=== PATIENT | female | born 1955 | race Caucasian/White ===

== ENCOUNTER 2017-09-20 06:04 | Day surgery (SDC) | payer BC ==
[2017-09-17 16:13] VITALS: BMI 35.6
[2017-09-20] MEDS ORDERED: Bupivacaine/Epinephrine 0.25% 30 ML VIAL ONE (09:19)
[2017-09-20] MEDS ORDERED: Fentanyl 100 MCG/2 ML VIAL ONE ×2 (09:20→09:21)
[2017-09-20] MEDS ORDERED: CEFAZOLIN/Water 2 GM/20 ML SYRINGE ONE (09:24)
[2017-09-20] MEDS ORDERED: Lidocaine 2% MPF 10 ML AMP (For Epidural Use) ONE (09:42)
[2017-09-20] MEDS ORDERED: Dexamethasone 20 MG/5 ML VIAL ONE (09:42)
[2017-09-20] MEDS ORDERED: ePHEDrine/0.9% NaCl/PF SYRINGE 50 mg/10 ml ONE (09:42)
[2017-09-20] MEDS ORDERED: Ondansetron HCl/PF 4 MG/2 ML Vial ONE (09:42)
[2017-09-20] MEDS ORDERED: Propofol 200 MG/20 ML VIAL ONE (09:42)
[2017-09-20] MEDS ORDERED: Ketorolac Tromethamine 30 MG/ML VIAL ONE (09:42)
[2017-09-20] MEDS ORDERED: Glycopyrrolate 0.2 MG/ML 5 ML SYRINGE ONE (09:42)
--- NOTE | 2017-09-23 10:39 | OP ---
DATE OF PROCEDURE: 09/20/2017 PROCEDURE: Umbilical hernia repair with mesh. PREOPERATIVE DIAGNOSIS: Umbilical hernia. POSTOPERATIVE DIAGNOSIS: Umbilical hernia. HISTORY: Ms. Santiago is a 62-year-old woman with an umbilical hernia present for some time, but be coming more symptomatic recently. She has had to limit her activities because of pain at this hernia site and the recommendation was made to proceed with hernia repair. PROCEDURE: After informed consent was obtained and appropriate preoperative antibiotics administered , the patient was taken to the operating room where she was placed in supine position and anesthesia administered. She was prepped and draped in a standard sterile fashion and local anesthesia infused to the skin and subcutaneous tissues overlying the umbilicus. A transverse skin incision was made an d dissection carried down to the hernia sac which was dissected free circumferentially to the level o f the fascia. This was reduced through the fascial defect and a preperitoneal space developed bluntl y. A 4.[address] mesh was obtained and placed through the fascial defect into the preperiton eal space. The fascia was then closed with Ethibond sutures including the strap in the closure. The strap was then trimmed to length and the abdominal incision irrigated and hemostasis verified. The subcutaneous tissues were reapproximated with 3-0 absorbable sutures and the skin closed with 4-0 Mon ocryl subcuticular suture. Dermabond dressings were placed and once this was dry, a pressure dressin g placed at the umbilicus. The patient was taken to the recovery room in good condition. Estimated blood loss was minimal. There were no complications. There were no specimens.
== END 2017-09-20 12:20 | disposition home or self-care (01) ==
LOC: SDC 06:04
PROVIDERS: ATTEND Surgery
PROC: 0WUF0JZ Supplement Abdominal Wall with Synthetic Substitute, Open Approach (ICD-10-PCS; principal; 2017-09-20)
DX: K42.9 Umbilical hernia without obstruction or gangrene (principal); J45.909 Unspecified asthma, uncomplicated; E78.00 Pure hypercholesterolemia, unspecified; Z91.041 Radiographic dye allergy status; Z88.2 Allergy status to sulfonamides; Z79.899 Other long term (current) drug therapy; Z90.710 Acquired absence of both cervix and uterus; Z90.5 Acquired absence of kidney; Z98.890 Other specified postprocedural states
CPT/HCPCS: J1100; J1885; J2001; J2405; J2704; J3010

== ENCOUNTER 2017-10-16 01:32 | Outpatient (CLI) | payer BC | END 2017-10-16 01:33 | disposition home or self-care (01) | LOC: BICULT 01:32 | PROVIDERS: ATTEND Internal Medicine Nephrology | DX: Z53.9 Procedure and treatment not carried out, unspecified reason (principal) ==

== ENCOUNTER 2019-04-27 13:12 | Emergency (ER) | payer BC ==
[2019-04-27 13:40] LABS: #Basophils 0.1 thou/uL (0.0-0.2); #Lymphocytes 1.5 thou/uL (1.20-3.40); #Monocytes 0.4 thou/uL (0.11-0.59); #Neutrophils 4.3 thou/uL (1.40-6.50); %Basophils 1.2 % (0.0-1.0); %Eosinophils 0.6 % (0.0-10.0); %Lymphocytes 23.5 % (21.0-51.0); %Neutrophils 68.7 % (42.0-75.0); Hemoglobin 15.4 g/dL (12.0-16.0); Mean Corpuscular HGB CONC 33.5 g/dL (32.0-36.0); Mean Corpuscular Hemoglobin 30.3 pg (27.0-31.0); Mean Corpuscular Volume 90.6 fL (78.0-98.0); Mean Platelet Volume 6.9 fL (7.4-10.4); Platelet Count 233 thou/uL (130-400); RBC Distribution Width 11.5 % (11.5-14.5); Red Blood Cell (RBC) Count 5.08 mill/uL (4.20-5.40); White Blood Cell (WBC) Count 6.2 thou/uL (4.8-10.8)
[2019-04-27 13:57] LABS: ALT (SGPT) 15 U/L (8-55); AST (SGOT) 15 U/L (5-34); Albumin 4.4 g/dL (3.4-4.8); Alkaline Phosphatase 78 U/L (40-150); Anion Gap 16 mmol/L (10-20); BUN (Urea Nitrogen) 12 mg/dL (9.8-20.1); Bilirubin, Total 0.8 mg/dL (0.2-1.2); Calc. Creatinine Clearance 0 mL/min (70-130); Carbon Dioxide 22 mmol/L (23-31); Chloride 106 mmol/L (98-107); Estimated GFR-MDRD 55; Globulin 3.4 g/dL (2.4-3.5); Glucose 114 mg/dL (80-115); Lipase 46 U/L (8-78); Potassium 4.2 mmol/L (3.5-5.1); Protein, Total 7.8 g/dL (6.0-8.3); Sodium 140 mmol/L (136-145)
[2019-04-27] MEDS ORDERED: Morphine 4 MG/ML VIAL ONE (14:14)
[2019-04-27] MEDS ORDERED: Ondansetron PF 4 MG/2 ML Vial ONE (14:14)
[2019-04-27 14:36] LABS: Bilirubin Small (Negative); Blood, Urine Small (Negative); Glucose, Urine (Dipstick) Negative (Negative); Leukocyte Negative (Negative); Nitrite Negative (Negative); Protein, Urine (Dipstick) Trace mg/dL (Neg-Trace); Specific Gravity, Urine 1.015 (1.005-1.030)
[2019-04-27 14:40] LABS: Clarity Hazy (Clear)
[2019-04-27 15:00] LABS: Bacteria/HPF 1+ HPF (None Seen); WBC/HPF None Seen HPF (0-3)
--- NOTE | 2019-04-27 15:04 | CT ---
CT ABDOMEN AND PELVIS WITHOUT CONTRAST: 04/27/19 HISTORY: Abdominal pain. FINDINGS: Absence of oral and IV contrast reduces the sensitivity of the exam particularly for evaluation of so lid organs and bowel. The patient is post right nephrectomy, hysterectomy, and hernia repair. A small hiatal hernia is present. Calcified gallstones are noted. No free air or free fluid is seen i n the abdomen or pelvis. No calculi is seen in the left kidney, left ureter or the urinary bladder. No left sided hydroureteronephrosis is seen. There is colonic diverticulosis. There are vascular calcifications without evidence of aneurysmal dilatation of the abdominal aorta. D egenerative changes are present in the spine. A normal appearing appendix is present. IMPRESSION: 1. Small hiatal hernia. 2. No CT evidence of urinary tract calculi or obstruction. 3. Status post right nephrectomy, hysterectomy and hernia repair. 4. Colonic diverticulosis without diverticulitis. POS: PRAKASH
== END 2019-04-27 15:41 | disposition home or self-care (01) ==
LOC: SCSER 13:12
DX: R11.2 Nausea with vomiting, unspecified (principal); R10.30 Lower abdominal pain, unspecified; R10.814 Left lower quadrant abdominal tenderness; K21.9 Gastro-esophageal reflux disease without esophagitis; F41.9 Anxiety disorder, unspecified; F32.9 Major depressive disorder, single episode, unspecified; Z79.899 Other long term (current) drug therapy
CPT/HCPCS: 74176; 80053; 81003; 81015; 83690; 85025; J2270; J2405

== ENCOUNTER 2020-08-04 13:15 | Outpatient (CLI) | payer MEDICARE, BC ==
--- NOTE | 2020-08-04 15:35 | MMO ---
Bilateral MAMMO Bilat Screen [facility]. CLINICAL HISTORY: Patient is 65 years old and is seen for screening. The patient has no family history of breast cancer. The patient has a history of kidney cancer in 2008. VIEWS: The views performed were: bilateral craniocaudal with tomosynthesis and bilateral mediolateral oblique with tomosynthesis. FILMS COMPARED: The present examination has been compared to prior imaging studies performed at [facility] on 06/11/2012 and 03/06/2014, and at [facility] on 10/17/2015 and 08/27/2017. This study has been interpreted with the assistance of computer-aided detection. MAMMOGRAM FINDINGS: The breasts are almost entirely fat. There are no suspicious masses, suspicious calcifications, or new areas of architectural distortion. IMPRESSION: THERE IS NO MAMMOGRAPHIC EVIDENCE OF MALIGNANCY. A ROUTINE FOLLOW-UP MAMMOGRAM IN 1 YEAR IS RECOMMENDED. THE RESULTS OF THIS EXAM WERE SENT TO THE PATIENT. ACR BI-RADS Category 1 - Negative MAMMOGRAPHY NOTE: 1. A negative mammogram report should not delay a biopsy if a dominant of clinically suspicious mass is present. 2. Approximately 10% to 15% of breast cancers are not detected by mammography. 3. Adenosis and dense breasts may obscure an underlying neoplasm. Reported by: ANN BARTHOLOMEW MD Electonically Signed: [id number]
== END 2020-08-04 13:16 | disposition home or self-care (01) ==
LOC: BICMAMMO 13:15
PROVIDERS: ATTEND Family Medicine
DX: Z12.31 Encounter for screening mammogram for malignant neoplasm of breast (principal); Z85.528 Personal history of other malignant neoplasm of kidney
CPT/HCPCS: 77063; 77067

== ENCOUNTER 2020-09-15 11:17 | Outpatient (CLI) | payer MEDICARE, BC ==
[2020-09-15] MEDS ORDERED: Iopamidol 370 76% 100 ML VIAL ONE (13:33)
--- NOTE | 2020-09-15 13:59 | CT ---
CT ABDOMEN AND PELVIS WITH AND WITHOUT IV CONTRAST: 09/15/20 HISTORY: Hematuria. Right sided recent renal cell carcinoma and right nephrectomy. COMPARISON: 04/27/19 and 08/24/16. The lung bases are clear. A hiatal hernia is again seen. Tiny hyperdense foci is seen in the dependen t portions of the gallbladder, new since the previous exams. The spleen, pancreas and adrenal glands are normal. The patient is status post right nephrectomy. No calculi is seen in the left kidney, left ureter or the urinary bladder. No left sided hydroureteronephrosis is seen. Post contrast images dem onstrate a stable tiny 5 mm cyst in the anterior cortex of the left mid kidney. No enhancing adrenal mass is seen. There is normal contrast excretion into the left ureter and urinary bladder. No free air, free fluid or lymphadenopathy is noted in the abdomen or pelvis. There are vascular calc ifications without evidence of aneurysmal dilatation of the abdominal aorta. There are degenerative c hanges in the spine. No osteolytic or osteoblastic lesions are seen. The small bowel loops are not a bnormally dilated. A normal appearing appendix is present. A couple of tiny low density lesions are s een in the right lobe of the liver which were also likely seen on the previous exam of 08/24/16. A ti ny fat containing umbilical hernia is again noted. IMPRESSION: 1. Hiatal hernia. 2. Probable cholelithiasis. 3. Status post right nephrectomy. 4. No evidence of tumor recurrence of metastatic disease. 5. Colonic diverticulosis. POS: MZA
--- NOTE | 2020-09-15 14:03 | RAD ---
2 VIEW CHEST: Date: 09/15/2020 INDICATION: Renal cell carcinoma. FINDINGS: Lungs appear clear. No infiltrate. Heart size upper normal. Vascular markings normal. Osseous structu res unremarkable. IMPRESSION: No acute findings. POS: AGW
== END 2020-09-15 11:18 | disposition home or self-care (01) ==
LOC: CT 11:17
PROVIDERS: ATTEND Urology
DX: R31.29 Other microscopic hematuria (principal); R31.0 Gross hematuria; K44.9 Diaphragmatic hernia without obstruction or gangrene; K57.30 Diverticulosis of large intestine without perforation or abscess without bleeding; Z90.5 Acquired absence of kidney; Z85.528 Personal history of other malignant neoplasm of kidney
CPT/HCPCS: 71046; 74178; Q9967

== ENCOUNTER 2021-07-18 08:55 | Outpatient (CLI) | payer MEDICARE ==
[2021-07-18 10:13] LABS: #Eosinphils 0.1 10x3/uL (0.0-0.5); #Monocytes 0.6 10x3/uL (0.0-1.1); #Neutrophils 2.4 10x3/uL (1.5-8.4); %Basophils 0.7 % (0.0-2.0); %Eosinophils 1.1 % (0.0-6.0); %Lymphocytes 43.8 % (18.0-47.0); %Monocytes 10.2 % (0.0-10.0); Hemoglobin 13.4 g/dL (12.0-15.5); Mean Corpuscular HGB CONC 33.1 g/dL (32.0-36.0); Mean Corpuscular Hemoglobin 30.5 pg (27.0-33.0); Mean Corpuscular Volume 92.3 fl (81.6-98.3); Mean Platelet Volume 9.8 fl (7.4-10.4); Platelet Count 234 10x3/uL (150-450); RBC Distribution Width 11.9 % (11.5-14.5); Red Blood Cell (RBC) Count 4.39 10x6/uL (3.90-5.03); White Blood Cell (WBC) Count 5.4 10x3/uL (3.5-10.5)
[2021-07-18 10:28] LABS: ALT (SGPT) 14 U/L (8-55); AST (SGOT) 15 U/L (5-34); Albumin 4.3 g/dL (3.4-4.8); Alkaline Phosphatase 72 U/L (40-110); Anion Gap 14 mmol/L (10-20); BUN (Urea Nitrogen) 17 mg/dL (9.8-20.1); Bilirubin, Total 0.4 mg/dL (0.2-1.2); Calc. Creatinine Clearance 0 mL/min (70-130); Calcium 10.2 mg/dL (7.8-10.44); Carbon Dioxide 26 mmol/L (23-31); Chloride 106 mmol/L (98-107); Globulin 2.9 g/dL (2.4-3.5); Glucose 84 mg/dL (80-115); Potassium 4.6 mmol/L (3.5-5.1); Protein, Total 7.2 g/dL (5.8-8.1); Sodium 141 mmol/L (136-145)
[2021-07-18 15:51] LABS: SARS-CoV-2 PCR by NAA Not Detected (NotDetected)
== END 2021-07-18 08:56 | disposition home or self-care (01) ==
LOC: LABBT 08:55
PROVIDERS: ATTEND Surgery
DX: Z01.812 Encounter for preprocedural laboratory examination (principal); K80.20 Calculus of gallbladder without cholecystitis without obstruction; Z20.822 Contact with and (suspected) exposure to COVID-19
CPT/HCPCS: 80053; 85025; U0003; U0005

== ENCOUNTER 2021-07-21 05:59 | Day surgery (SDC) | payer MEDICARE ==
[2021-07-19 14:08] VITALS: BMI 33.2
[2021-07-21] MEDS ORDERED: Acetaminophen 500 MG TAB ONE (06:11)
[2021-07-21] MEDS ORDERED: Ketorolac Tromethamine 30 MG/ML VIAL ONE (06:11)
[2021-07-21] MEDS ORDERED: Fentanyl 100 MCG/2 ML VIAL ONE (06:44)
[2021-07-21] MEDS ORDERED: Midazolam HCl 2 mg/2 ml Vial ONE (06:44)
[2021-07-21] MEDS ORDERED: Lidocaine 1% w/Epinephrine 1:100K 30 ML VIAL ONE (06:51)
[2021-07-21] MEDS ORDERED: Bupivacaine 0.25% HCL 30 ML VIAL ONE (06:51)
[2021-07-21] MEDS ORDERED: Dexamethasone 20 MG/5 ML VIAL ONE (08:06)
[2021-07-21] MEDS ORDERED: PROPOFOL 200 MG/20 ML VIAL ONE (08:06)
[2021-07-21] MEDS ORDERED: Glycopyrrolate 0.2 MG/ML 5 ML SYRINGE ONE (08:06)
[2021-07-21] MEDS ORDERED: Rocuronium Bromide 10 MG/ML (10ML VIAL) ONE (08:06)
[2021-07-21] MEDS ORDERED: Lidocaine 1% PF 5 ML VIAL ONE (08:06)
[2021-07-21] MEDS ORDERED: Ondansetron PF 4 MG/2 ML Vial ONE (08:06)
[2021-07-21] MEDS ORDERED: HYDROcodone/Acetaminophen 5/325 mg Tablet ONE (10:49)
== END 2021-07-21 11:35 | disposition home or self-care (01) ==
LOC: SDC 05:59
PROVIDERS: ATTEND Surgery
PROC: 0FT44ZZ Resection of Gallbladder, Percutaneous Endoscopic Approach (ICD-10-PCS; principal; 2021-07-21)
DX: K80.10 Calculus of gallbladder with chronic cholecystitis without obstruction (principal); K66.0 Peritoneal adhesions (postprocedural) (postinfection); J45.909 Unspecified asthma, uncomplicated; E78.00 Pure hypercholesterolemia, unspecified; K21.9 Gastro-esophageal reflux disease without esophagitis; M19.90 Unspecified osteoarthritis, unspecified site; Z85.528 Personal history of other malignant neoplasm of kidney; Z79.899 Other long term (current) drug therapy; Z88.2 Allergy status to sulfonamides; Z91.013 Allergy to seafood; Z91.041 Radiographic dye allergy status; Z90.5 Acquired absence of kidney
CPT/HCPCS: 88304; J0690; J1100; J1885; J2250; J2405; J2704; J3010; S0020

== ENCOUNTER 2021-12-25 13:07 | Outpatient (CLI) | payer MEDICARE | END 2021-12-25 13:08 | disposition home or self-care (01) | LOC: BICULT 13:07 | PROVIDERS: ATTEND Urology | DX: C64.1 Malignant neoplasm of right kidney, except renal pelvis (principal); N28.1 Cyst of kidney, acquired; R31.29 Other microscopic hematuria; Z90.5 Acquired absence of kidney | CPT/HCPCS: 71046; 76770 ==